=== PATIENT | male | born 1965 | race Caucasian/White ===

== ENCOUNTER 2016-11-09 11:31 | Emergency (ER) | payer BC ==
[~2016-11-09] VITALS: Ht 177.8 cm; Wt 66.0 kg
[2016-11-09] MEDS ORDERED: SODIUM CHLORIDE FLUSH 3 ML SYR IV ONE (11:40)
[2016-11-09] MEDS ORDERED: HYDROmorphone 1 MG/ML (DILAUDID) SYRINGE IV ONE (11:40)
[2016-11-09] MEDS ORDERED: SODIUM CHLORIDE FLUSH 10 ML SYR IV PRN (11:40)
[2016-11-09] MEDS ORDERED: KETOROLAC 30 MG/ML (TORADOL) 1 ML VIAL IV ONE (11:40)
[2016-11-09] MEDS ORDERED: ONDANSETRON 2 MG/ML (Z0FRAN) 2 ML VIAL IV ONE (11:40)
[2016-11-09 12:19] LABS: BILIRUBIN,URINE Negative (Negative); CLARITY,URINE Clear; COLOR,URINE Yellow; GLUCOSE, URINE (UA) Negative (Negative); LEUKOCYTE ESTERASE ,URINE Negative (Negative); PH,URINE 5.5 (5.0 - 8.0); UROBILINOGEN,URINE 0.2 mg/dL (0.2-1.0)
[2016-11-09 12:21] LABS: BASOPHILS % (AUTO) 1 % (0-2); EOSINOPHILS # (AUTO) 0.1 10^3uL; EOSINOPHILS % (AUTO) 2 % (0-4); LYMPHOCYTES # (AUTO) 3.1 X10^3; MEAN CORPUSCULAR HEMOGLOBIN 29.7 PG (26.0-34.0); MEAN CORPUSCULAR VOLUME 85 FL (80-100); MONOCYTES # (AUTO) 0.8 X10^3; MONOCYTES % (AUTO) 10 % (3-11); NEUTROPHILS # (AUTO) 3.7 X10^3; NEUTROPHILS % (AUTO) 48 % (51-67); PLATELET COUNT 214 10^3uL (150-450); WHITE BLOOD COUNT 7.77 10^3uL (4.0-11.0)
[2016-11-09 12:23] LABS: URINE CENTRIFUGED VOLUME <10mL Unspun
[2016-11-09 12:29] LABS: ALBUMIN 4.5 g/dL (3.4-5.0); ANION GAP 14.4 MEQ/L (3-15); CALCULATED IONIZED CALCIUM 3.8 mg/dL (3.8-4.6); TOTAL PROTEIN 7.7 g/dL (6.4-8.5)
--- NOTE | 2016-11-09 13:20 | NUR ---
Sent home with urine strainer.
[2016-11-09 13:28] VITALS: BP 134/89
== END 2016-11-09 13:35 | disposition home or self-care (01) ==
LOC: MERGE 11:34 → ED 11:34
DX: N13.2 Hydronephrosis with renal and ureteral calculous obstruction (principal)
CPT/HCPCS: 36415; 74176; 80053; 81003; 81015; 83690; 85025; 85610; 86140; 96361; 96374; 96375; 99283; J1170; J1885; J2405; J7030